=== PATIENT | male | born 1970 | race Caucasian/White ===

== ENCOUNTER 2019-07-21 11:37 | Emergency (ER) | payer BC ==
[2019-07-21] MEDS ORDERED: Sodium Chloride 0.9% 10 ML Syringe FLUSH PRN (12:03)
[2019-07-21] MEDS ORDERED: Piperacillin/Tazobactam 3.375 GM in Sodium Chloride 0.9% 100 ML IV ONE (12:13)
[2019-07-21 13:00] LABS: ANION GAP 15.8 mmol/L (10-20); CHLORIDE,CL 101 mmol/L (98-107); SODIUM,NA 140 mmol/L (136-145)
[2019-07-21] MEDS ORDERED: Lactated Ringers 1,000 ML IV ONE (13:04)
[2019-07-21] MEDS ORDERED: Iopamidol 612 MG/ML 100 ML Bottle IVPUSH ONE (14:21)
--- NOTE | 2019-07-21 14:25 | EDM.PDOC ---
ED [facility] GENERAL MEDICAL PROBLEM - General Chief Complaint: Lower Extremity Injury/Pain Stated Complaint: FOOT PAIN Time Seen by Provider: 07/21/19 11:50 Source of Information: Reports: Patient History Limitations: Reports: No Limitations - History of Present Illness INITIAL COMMENTS - FREE TEXT/NARRATIVE: Patient comes emergency department today with complaints of discoloration to his right foot and pain in his right foot. This patient is a diabetic who does not check his blood sugar and does not know what it is regularly. For the past 3 weeks he has had increasing pain to his fourth and fifth toe of the right foot. He denies any paresthesias injury or other trauma to the foot. He is getting concerned for the pain in his foot because today they look purple with some tissue and there is some going up the right foot. Does have a history of high blood pressure as well. No claudication with ambulation. - Related Data Allergies Allergy/AdvReac Type Severity Reaction Status Date / Time Penicillins Allergy Other Verified 07/21/19 13:51 Home Meds: Home Meds . [Unable to Verify Home Med List] 07/21/19 [History] Review of Systems - Review of Systems Review Of Systems: Comprehensive ROS is negative, except as noted in HPI. ED EXAM, GENERAL - Physical Exam Exam: See Below Exam Limited By: No Limitations General Appearance: Alert, WD/WN, No Apparent Distress Respiratory/Chest: No Respiratory Distress, Lungs Clear Cardiovascular: Normal Peripheral Pulses, Regular Rate, Rhythm Peripheral Pulses: 0: Posterior Tibial (L) (Monphasic by doppler only. ), Posterior Tibial (R) (Monphasic by doppler only. ), Dorsalis Pedis (L) ( Monphasic by doppler only. ), Dorsalis Pedis (R) (Monphasic by doppler only. ), 1+: Popliteal (L), Popliteal (R), 2+: Radial (L), Radial (R) GI/Abdominal: Normal Bowel Sounds, Soft, Non-Tender (Male) Exam: Deferred Rectal (Males) Exam: Deferred Back Exam: Normal Inspection Extremities: No: Normal Inspection (Exam is primarily isolated to the right lower extremity. He has dopplerable pulses but they are not palpable. He has necrosis to the tip of the fourth toe and beginning necrosis of the tip of the fifth toe. The rest of the toes are quite erythematous purple with some skin sloughing and it is moist. Her second and third toes are unremarkable. He has some erythema ecchymosis and mottling transversing proximally from the fourth and fifth toe on the lateral aspect of the foot almost all the way back to the calcaneus. There are multiple little breaks in the skin of the fifth toe where the skin is sloughing.) Neurological: Alert, Oriented, Normal Cognition, No Motor/Sensory Deficits Psychiatric: Normal Affect, Normal Mood Skin Exam: Warm, Dry, Intact, Normal Color Course - Orders/Labs/Meds Orders: Active Orders 24 hr Category Date Time Status CULTURE BLOOD [BC] Stat Lab 07/21/19 12:13 Received CULTURE BLOOD [BC] Stat Lab 07/21/19 12:24 Received Sodium Chloride 0.9% [Saline Flush] Med 07/21/19 12:03 Active 10 ml FLUSH ASDIRECTED PRN Blood Culture x2 Reflex Set [OM.PC] Stat Oth 07/21/19 12:03 Ordered Peripheral IV Insertion Adult [OM.PC] Stat Ot 07/21/19 12:02 Ordered Medication Orders Sodium Chloride (Saline Flush) 10 ml FLUSH ASDIRECTED PRN PRN Reason: Keep Vein Open Labs: Laboratory Tests 07/21/19 07/21/19 07/21/19 Range/Units 12:13 12:13 12:13 WBC 9.3 (4.0-10.0) x10^3/uL RBC 4.65 (4.5-6.0) x10^6/uL Hgb 13.9 L (14.0-18.0) g/dL Hct 41.3 (40.0-52.0) % MCV 88.8 (78.0-93.0) fL MCH 29.9 (26.0-32.0) pg MCHC 33.7 (32.0-36.0) g/dL RDW Coeff of Liana 13.4 (10.0-15.0) % Plt Count 240 (130-400) x10^3/uL Neut % (Auto) 49.9 L (50.0-80.0) % Lymph % (Auto) 41.9 (25.0-50.0) % [place] % (Auto) 5.1 (2.0-11.0) % Eos % (Auto) 2.8 (0.0-4.0) % Baso % (Auto) 0.3 (0.2-1.2) % Sodium 140 (136-145) mmol/L Potassium 3.8 (3.5-5.1) mmol/L Chloride 101 (98-107) mmol/L Carbon Dioxide 27 (21-32) mmol/L Anion Gap 15.8 (10-20) mmol/L BUN 9 (7-18) mg/dL Creatinine 1.0 (0.70-1.30) mg/dL Est Cr Clr Drug Dosing TNP Estimated GFR (MDRD) > 60 Glucose 264 H (74-106) mg/dL Lactic Acid 2.7 H* (0.4-2.0) mmol/L Calcium 8.6 (8.5-10.1) mg/dL Corrected Calcium 9.00 (8.5-10.1) mg/dL Total Bilirubin 0.3 (0.2-1.0) mg/dL AST 16 (15-37) U/L ALT 26 (16-63) U/L Alkaline Phosphatase 84 (46-116) U/L C-Reactive Protein 1.0 H (<=0.9) mg/dL Total Protein 6.9 (6.4-8.2) g/dL Albumin 3.5 (3.4-5.0) g/dL Globulin 3.4 Albumin/Globulin Ratio 1.03 Meds: Medications Generic Name Dose Route Start Last Admin Trade Name Freq PRN Reason Stop Dose Admin Sodium Chloride 10 ml 07/21/19 12:03 Saline Flush FLUSH ASDIRECTED PRN Keep Vein Open Discontinued Medications Generic Name Dose Route Start Last Admin Trade Name Freq PRN Reason Stop Dose Admin Piperacillin Sod/Tazobactam 100 mls @ 200 mls/hr 07/21/19 12:13 07/21/19 12: 35 Sod 3.375 gm/ Sodium Chloride IV 07/21/19 12:42 200 mls/hr STAT ONE Administration Lactated Ringer's 1,000 mls @ 999 mls/hr 07/21/19 13:04 07/21/19 13:52 Ringers, Lactated IV 07/21/19 14:04 999 mls/hr ONETIME ONE Administration Vancomycin HCl 1.5 gm/ Premix 300 mls @ 300 mls/hr 07/21/19 13:42 07/21/19 13 :52 IV 07/21/19 13:43 300 mls/hr ONETIME ONE Administration Iopamidol 100 ml 07/21/19 14:21 07/21/19 14:21 Isovue-300 (61%) IVPUSH 07/21/19 14:22 100 ml ONETIME ONE Administration - Radiology Interpretation Free Text/Narrative:: CT of the Lower MD with contrast per radiology no radiographic evidence of acute osteomyelitis. MRI is more sensitive. No abscess. No free air. - Re-Assessments/Exams Free Text/Narrative Re-Assessment/Exam: 07/21/19 15:43 Labs and blood cultures drawn x2. IV LR 1 liter wide open. Zosyn 3.375grams Vanco 1500 CT lower extremity does not show any osteo or abscess or free air. His blood sugar is elevated at 264. I called and spoke with Dr. Brown at [facility] in [place]. HPI ER course findings and concerns were relayed to him. He accepted the patient in transfer by private vehicle at [facility] for further care management and work up. I discussed the plan of care with the patient. He was comfortable with this plan and his questions answered. Departure - Departure Time of Disposition: 15:21 Disposition: DC/Tfer to Acute Hospital 02 Clinical Impression: Diabetic foot infection, Hyperglycemia due to diabetes mellitus, Toe necrosis - Discharge Information Referrals: PCP,None [Primary Care Provider] - Forms: ED Department Discharge, Interfacility Transfer EMTALA Additional Instructions: Go directly to the ED at [facility] and they will direct you to your bed for hospitalization. Please also bring your paperwork along with you as well. Sepsis Event Note - Focused Exam Date Exam was Performed: 07/21/19 Time Exam was Performed: 15:43 - My Orders Last 24 Hours: My Active Orders 07/21/19 12:02 Peripheral IV Insertion Adult [OM.PC] Stat 07/21/19 12:03 Sodium Chloride 0.9% [Saline Flush] 10 ml FLUSH ASDIRECTED PRN Blood Culture x2 Reflex Set [OM.PC] Stat 07/21/19 12:13 CULTURE BLOOD [BC] Stat 07/21/19 12:24 CULTURE BLOOD [BC] Stat - Assessment/Plan Last 24 Hours: My Active Orders 07/21/19 12:02 Peripheral IV Insertion Adult [OM.PC] Stat 07/21/19 12:03 Sodium Chloride 0.9% [Saline Flush] 10 ml FLUSH ASDIRECTED PRN Blood Culture x2 Reflex Set [OM.PC] Stat 07/21/19 12:13 CULTURE BLOOD [BC] Stat 07/21/19 12:24 CULTURE BLOOD [BC] Stat Assessment:: Diabetic foot infection to the right 4tha nd 5th toes with necrosis to the tip of the 4th toe. Hyperglycemia of a DM Necrosis of toe 4th toe right foot. Plan: Private vehicle to [facility] for further care management and evaluation.
--- NOTE | 2019-07-21 14:47 | CT ---
[id number] CT/CTA Lower Extremity Right Exam: CTA Lower Extremity Right Indication:ISCHEMIC NECROTIC 4TH AND 5TH TOES. OSTEO? Comparison: No prior imaging for comparison. Discussion: No radiographically evident osteolysis to suggest acute osteomyelitis. No abscess. Tricompartmental knee joint osteoarthritis. Diffuse bone demineralization. Impression: No radiographic evidence of acute osteoarthritis. However, MRI is much more sensitive for the detection of early changes of infection. If there is continued clinical suspicion of osteomyelitis, MRI examination of the foot with and without contrast is recommended. Jose Quiros MD 07/21/19 1873 Thank you for allowing us to participate in the care of your patient.
== END 2019-07-21 16:20 | disposition short-term general hospital (02) ==
LOC: VM.ED 11:37
DX: E11.52 Type 2 diabetes mellitus with diabetic peripheral angiopathy with gangrene (principal); I96 Gangrene, not elsewhere classified; E11.628 Type 2 diabetes mellitus with other skin complications; E11.65 Type 2 diabetes mellitus with hyperglycemia; Z88.0 Allergy status to penicillin
CPT/HCPCS: 36415; 73701-RT; 80053; 83605; 85025; 86140; 87040; 96365; 96366; 96367; 99284-25; J2543; J3370; J7050; J7120; Q9967

== ENCOUNTER 2023-02-14 11:01 | Emergency (ER) | payer OTHER, BC | END 2023-02-14 12:30 | disposition home or self-care (01) | LOC: VM.ED 11:01 | DX: S81.801A Unspecified open wound, right lower leg, initial encounter (principal); I10 Essential (primary) hypertension; E11.9 Type 2 diabetes mellitus without complications; Z88.0 Allergy status to penicillin; W00.0XXA Fall on same level due to ice and snow, initial encounter | CPT/HCPCS: 73590-RT; 99283 ==